=== PATIENT | female | born 1975 | race Two or more races ===

== ENCOUNTER 2025-05-26 16:46 | Emergency (ER) | payer OTHER, SELFPAY ==
[2025-05-26 16:47] VITALS: BMI 20.3
[2025-05-26 16:55] VITALS: BP 115/75; PULSE 65; RESP 18; TEMP 36.7; O2SAT 97
--- NOTE | 2025-05-26 17:05 | XR_ITS ---
Examination: Shoulder,right, 3 views Technique: Shoulder AP internal rotation, AP external rotation, Y view shoulder, 3 views Exam date and time :May 26, 2025 1710 hours INDICATIONS: Onset shoulder pain today. FINDINGS: No shoulder fracture or dislocation Mild narrowing glenohumeral joint. Prominent right shoulder calcific tendinitis IMPRESSION: Prominent right shoulder calcific tendinitis
--- NOTE | 2025-05-26 17:06 | EDNOTE_ITS ---
<Statement entered by Britt Amaya MD - 06/10/25 06:24> As co-signing physician, I was present and available for consult prn. I concur with the plan and care as documented by the midlevel provider. Upper Extremity Injury RME/HPI General Chief Complaint: Extremity Injury, Upper Stated Complaint: R) ARM PAIN SINCE YESTERDAY Time Seen by Provider: 05/26/25 16:57 Source: patient, RN notes reviewed and old records reviewed Arrival date/time: 05/26/25 16:46 Mode of arrival: ambulatory Limitations: no limitations RME / HPI RME / HPI narrative: 50yof presents to ED 2-day history of R shoulder pain. No preceding injury or fall. Denies frequent repetitive shoulder movement at work. No deformity, joint swelling or numbness/tingling reported. Patient c/o limited ROM 2/2 pain. No medications or treatments since onset. Related Data Previous Rx's ?Medication ?Instructions ?Recorded azithromycin 250 mg tablet See Rx Instructions PO .COM PLEX #6 06/29/23 (Zithromax Z-[place]) tabs cyclobenzaprine 5 mg tablet 5 mg PO TID PRN pain #20 t abs 05/26/25 ibuprofen 400 mg tablet 400 mg PO Q6H PRN pain #20 t abs 05/26/25 lidocaine 5 % topical patch 1 patch topical QDAY PRN p ain #15 05/26/25 ea Allergies Allergy/AdvReac Type Severity Reaction Status Date / Time No Known Allergies Allergy Verified 05/26/25 16:49 Review of Systems Review of Systems Systems Reviewed: All systems reviewed, normal except as documented Musculoskeletal Musculoskeletal: Reports arthralgias, Denies joint swelling, Reports limited range of motion, Denies numbness and Denies tingling Neurologic Neurologic: Denies numbness and Denies tingling Past Medical History Surgical History SURGICAL: Positive Abdominal Surgery (EGD WITH DILATION OF ESOPHAGUS) Social History SMOKING STATUS: Never smoker SUBSTANCE USE: does not use ALCOHOL: Never Past Medical History Comments PMH COMMENT: denies pmhx ED Exam General Limitations: Present no limitations General appearance: Present alert and in no apparent distress Head Head exam: Present atraumatic and normocephalic Eye Eye exam: Present normal appearance, PERRL and EOMI ENT ENT exam: Present normal exam and mucous membranes moist Neck Neck exam: Present normal inspection and full ROM Chest Chest inspection: Present normal inspection and symmetric chest wall rise Respiratory Respiratory exam: Present normal lung sounds bilaterally; Absent respiratory distress Cardiovascular Cardiovascular exam: Present regular rate and normal rhythm Extremities Exam Extremities exam: Present other (Mild tenderness to R shoulder, no swelling or deformity. Limited ROM 2/2 pain. 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 strength) Back Exam Back exam: Absent paraspinal tenderness or vertebral tenderness Neurological Exam Neurological exam: Present alert and oriented X3 Psychiatric Psychiatric exam: Present normal affect and normal mood Skin Skin exam: Present warm, dry, intact and normal color Course Quality Measures none Orders Category Date Time Status XR shoulder RT min 2V Stat Exams 05/26/25 17:05 Completed CYCLObenzaPRINE [Flexeril] Med 05/26/25 17:06 Discontinued 5 mg PO X1 ONE Ketorolac Inj [Toradol Inj] Med 05/26/25 17:06 Discontinued 30 mg IM X1 ONE Lidocaine 5% Patch Med 05/26/25 17:06 Discontinued 1 patch TOP X1 ONE Vital Signs Vital signs: Vital Signs Temperature 98.1 F 05/26/25 16:55 Pulse Rate 65 05/26/25 16:55 Respiratory Rate 18 05/26/25 16:55 Blood Pressure 115/75 05/26/25 16:55 Pulse Oximetry (%) 97 05/26/25 16:55 Oxygen Delivery Method Room Air 05/26/25 16:55 Extremity Injury MDM Narrative MDM Narrative:: 50yof presents to ED 2-day history of R shoulder pain. No preceding injury or fall. Denies frequent repetitive shoulder movement at work. No deformity, joint swelling or numbness/tingling reported. Patient c/o limited ROM 2/2 pain. No medications or treatments since onset. Patient is neurovascularly intact. Encouraged RICE therapy, motrin/tylenol prn pain. Ortho referral given for follow up as needed. Stable for dc, RTED precautions given. Patient data External records reviewed:: [facility] previous records (06/29/23 ED visit for chest pain) Clinical information provided by:: patient Social determinants that could affect healthcare access:: none Patient has the following chronic illnesses:: none How is presenting disease/condition affected by chronic disease/condition?: no chronic disease Evaluation data The following diagnostics were reviewed and interpreted by me:: radiology exam(s) Lab and/or radiology exams considered but not ordered:: none Interpretation Summary: shoulder xrays: no fracture or dislocation Medications / Prescriptions Medications or Prescriptions considered but not ordered:: none Medication administrations:: Medication Administration History Discontinued Medications Cyclobenzaprine HCl (Cyclobenzaprine 5 Mg Tablet) 5 mg PO X1 ONE Stop: 05/26/25 17:07 Last Admin: 05/26/25 17:39 Dose: 5 mg Documented By: EF Ketorolac Tromethamine (Ketorolac Inj 60 Mg/2 Ml Vial) 30 mg IM X1 ONE Stop: 05/26/25 17:07 Last Admin: 05/26/25 17:39 Dose: 30 mg Documented By: EF Lidocaine (Lidocaine 5% 1 Patch) 1 patch TOP X1 ONE Stop: 05/26/25 17:07 Last Admin: 05/26/25 17:39 Dose: 1 patch Documented By: TEMI above medications administered in ED Consultations Consultation(s) initiated? (list below): No Diagnosis Upper Extremity Injury Differential Diagnosis: other (fracture, dislocation, sprain, strain, contusion, msk pain) Most likely diagnosis given after review of the tests above:: R shoulder pain, tendonitis Admission Indicated Admission indicated?: not indicated Admission Request Was there a request for admission?: No Disposition Plan Disposition Plan: Discharge Discharge Attestation Discharge Attestation: The patient and all family members were given an opportunity to ask questions and understood the discharge instructions. Discharge instructions specifically effects, indications for sooner follow up or return to the emergency department, and the expected course of current diagnosis. Patient condition: Stable Discharge Plan Plan Patient Disposition: HOME (Self Care) Patient condition on transfer: Stable Prescriptions/Referrals Prescriptions/Med Rec: New ibuprofen 400 mg tablet 400 mg PO Q6H PRN (Reason: pain) Qty: 20 0RF cyclobenzaprine 5 mg tablet 5 mg PO TID PRN (Reason: pain) Qty: 20 0RF lidocaine 5 % adhesive patch,medicated 1 patch topical QDAY PRN (Reason: pain) Qty: 15 0RF Rx Instructions: leave on most painful area for up to 12 hrs No Action azithromycin [Zithromax Z-[place]] 250 mg tablet See Rx Instructions PO .COMPLEX Qty: 6 0RF Rx Instructions: For 250 mg dose pack: take 500 mg today (day 1), then 250 mg for 4 days (days 2-5) Referrals: No Primary/Family,Physician [Primary Care Provider] - In 1 week Skip Arreguin MD [Physician] - (Call to schedule an appointment as needed, if symptoms worsen.) Problem List Clinical Impression: Calcific tendinitis of right shoulder, Pain in right shoulder Patient/Caregiver Discharge Instructions Education Materials: ED Tendonitis Print Language: Slovak Stand Alone Forms: Danuta Award Info., Work/School Release, Patient Portal Info Letter PA/ARCADE ATTENDANT Supervising Physician PA/ARCADE ATTENDANT Supervising Physician: Jose Luis
[2025-05-26] MEDS: LIDOCAINE 5% 1 PATCH TOP (17:39)
[2025-05-26] MEDS: KETOROLAC INJ 60 MG/2 ML VIAL 30 MG IM (17:39)
== END 2025-05-26 18:48 | disposition home or self-care (01) ==
PROVIDERS: Emergency Provider Emergency Medicine
DX: M75.31 Calcific tendinitis of right shoulder (principal)
CPT/HCPCS: 73030; 96372; 99283; J1885; J3490; A9270